=== PATIENT | female | born 1950 | race Caucasian/White ===

== ENCOUNTER 2022-08-11 23:30 | Inpatient (IN) | payer MEDICARE, OTHER ==
[~2022-08-11] VITALS: Ht 165.1 cm; Wt 78.8 kg
--- NOTE | 2022-08-12 02:44 | NUR ---
ARRIVAL TO ICU 03 PT ARRIVED VIA EMS [facility] AT 0035. PT A/O TO SELF AND PLACE. DOES NOT KNOW YEAR OR MONTH. FOLLOWS DIRECTIONS. PT STATES CONTRADICTING ANSWERS TO QUESTIONS. COOPERATIVE WITH CARE. ON 2L NC. VSS, BP SOFT. SR. SBP 90'S. CIWA OF 4. NO C/O CHEST PAIN OR SOB. MOVES ALL EXTREMITIES SPONTANEOUSLY AND WITH EQUAL STRENGTH. SEE ADMISSION ASSESSMENT FOR FULL ASSESSMENT. LR INFUSING FROM EMS AND STOPPED UPON TRANSFER. PT REQUESTED STAFF CALL DAUGHTER IN LAW AND THAT SHE WOULD KNOW PTS MEDICAL HISTORY/MEDICATIONS. DAUGHTER IN LAW CALLED AND STATED SHE DIDN'T KNOW THE PTS HISTORY OR MEDICATIONS. SHE STATED SHE WILL CALL BACK IN THE AM. CALL LIGHT IN REACH.
[2022-08-12 02:49] LABS: Bun/Creatinine Ratio 15.3 (12.0-20.0); Creatinine, Blood 0.78 mg/dL (0.40-1.00); Potassium, Blood 4.5 mmol/L (3.5-5.5)
[2022-08-12 02:49] LABS: Source, Urine Foley catheter
[2022-08-12 03:25] LABS: Bilirubin, Urine Neg (Neg); Blood, Urine 3+ (Neg); Glucose Qualitative, Urine Neg (Neg); Ketones, Urine Neg (Neg); Leukocyte Esterase, Urine 3+ (Neg); Nitrite, Urine Neg (Neg); Protein, Urine 2+ (Neg); Urobilinogen, Urine NORM (Normal)
[2022-08-12 03:46] LABS: Color, Urine Yellow (P-Yellow)
[2022-08-12 03:48] LABS: Appearance, Urine Hazy (Clear); Bacteria Many /hpf; Squamous Epithelial Cells Mod /hpf (Few); White Blood Cells, Urine 25-50 /hpf (0-5)
[2022-08-12] MEDS ORDERED: METO25ER PO (05:07)
[2022-08-12] MEDS ORDERED: FURO40 PO (05:08)
[2022-08-12] MEDS ORDERED: LEVSOD150 PO (05:09)
[2022-08-12] MEDS ORDERED: MELO7.5 PO (05:09)
[2022-08-12] MEDS ORDERED: MIRT30 PO (05:11)
[2022-08-12] MEDS ORDERED: VITAMIN D325 MC3 PO (05:12)
[2022-08-12] MEDS ORDERED: VITAMIN B125000 MC1 PO (05:18)
[2022-08-12] MEDS ORDERED: FAMO20 PO (05:19)
[2022-08-12] MEDS ORDERED: CILO100 PO (05:19)
[2022-08-12] MEDS ORDERED: DULO60 PO (05:19)
[2022-08-12] MEDS ORDERED: ATOR10 PO (05:20)
[2022-08-12] MEDS ORDERED: AMLO5 PO (05:20)
--- NOTE | 2022-08-12 05:43 | NUR ---
TRANSFER TO PCU 12 PT TRANSFERRED TO PCU VIA BED W/ THIS RN AND PCT ON OXYGEN. NO S/S OF DISTRESS. VSS. HOME MEDS SENT TO PHARMACY. CHART AND BELONGINGS SENT W/ PT. REPORT GIVEN TO PCU NURSE.
--- NOTE | 2022-08-12 05:52 | NUR ---
ASSUMPTION OF CARE NOTE: Patient transferred from ICU at 0540 in stable condition. Vitals stable, patient drowsy but easily arousable. She is oriented to person and knows she is in the hospital but does not know which one. She follows commands and is calm and cooperative. Seizure precautions in place- pads on, suction at bedside, bed in low position and bed alarm on. Call light in reach.
[2022-08-12] MEDS ORDERED: BUSP10 PO (11:12)
[2022-08-12] MEDS ORDERED: FERROUS SULFAT325 MG PO (11:16)
[2022-08-12] MEDS ORDERED: Celexa20 MG PO (11:19)
--- NOTE | 2022-08-12 15:42 | NUR ---
DISCHARGE HOME PT A&O X4. VSS. SPO2 > 92% ON RA. PIV REMOVED. PT TAKEN OUT IN WC W/ BELONGINGS & FAMILY MEMBERS @ APPROX 1530.
== END 2022-08-12 15:22 | disposition home or self-care (01) | DRG 897 ==
LOC: ICUE 23:30 → PCU 23:50 → ICUW 23:50 → ICUE 08-12 00:28 → PCU 08-12 05:31
PROVIDERS: ADMIT Internal Medicine
PROC: HZ2ZZZZ Detoxification Services for Substance Abuse Treatment (ICD-10-PCS; principal; 2022-08-12)
DX: F10.239 Alcohol dependence with withdrawal, unspecified (principal); E87.20 Acidosis, unspecified; E87.1 Hypo-osmolality and hyponatremia; R56.9 Unspecified convulsions; E11.22 Type 2 diabetes mellitus with diabetic chronic kidney disease; J44.9 Chronic obstructive pulmonary disease, unspecified; E87.6 Hypokalemia; N18.30 Chronic kidney disease, stage 3 unspecified; E03.9 Hypothyroidism, unspecified
CPT/HCPCS: 51702; 80048; 81001; 82947; 83605; 87086; 97110; 97162; A9270; J1644; J3411; J7030